=== PATIENT | female | born 1945 | race African-American/Black ===

== ENCOUNTER 2019-06-21 16:28 | Inpatient (IN) | payer BC, MEDICARE, OTHER ==
[~2019-06-21] VITALS: Ht 167.6 cm; Wt 79.8 kg
[2019-06-21] MEDS ORDERED: ONDANSETRON HCL 4MG/2ML INJ IV STA ×2 (17:10→20:55)
[2019-06-21] MEDS ORDERED: MORPHINE SULFATE 4 MG/ML CPJ (NOT FOR IM USE) IV STA ×2 (17:10→20:55)
[2019-06-21] MEDS ORDERED: SODIUM CHLORIDE 0.9% 1,000 ML IV ONE (17:10)
[2019-06-21 18:21] LABS: BASOPHILS % 0.3 % (0.0-2.0); EOSINOPHILS % 0.9 % (0.0-5.0); HEMATOCRIT. 42.3 % (36.0-48.0); HEMOGLOBIN. 14.7 g/dL (12.0-16.0); LYMPHOCYTES % 12.2 % (20.0-50.0); MEAN CORPUSCULAR VOLUME 86.1 fL (81.0-99.0); MEAN PLATELET VOLUME 6.5 fl (7.4-10.4); MONOCYTES % 6.4 % (2.0-8.0); NEUTROPHILS % 80.2 % (40.0-76.0); PLATELET 501 x1000/uL (130-400); RED BLOOD CELL COUNT 4.92 mill/uL (4.2-5.4); RED CELL DISTRIBUTION WIDTH 14.7 % (11.6-14.6)
[2019-06-21 18:30] LABS: CHLORIDE 86 mEq/L (98-107)
[2019-06-21 18:59] LABS: CLARITY URINE CLEAR (CLEAR); COLOR URINE YELLOW (YELLOW); KETONES URINE TRACE (NEGATIVE); LEUKOCYTE ESTERASE URINE NEGATIVE (NEGATIVE); NITRITE URINE NEGATIVE (NEGATIVE); OCCULT BLOOD URINE NEGATIVE (NEGATIVE); PH URINE 6.5 (4.5-8.0); PROTEIN URINE 2+ (NEGATIVE); SPECIFIC GRAVITY URINE 1.009 (1.005-1.030); UROBILINOGEN URINE 0.2 E.U./dL (0.2-1.0)
[2019-06-21] MEDS ORDERED: KCL 20MEQ/100ML PREMIX 100 ML IV ONE (19:15)
[2019-06-21] MEDS ORDERED: MAGNESIUM 1 G PREMIX 100 ML IV ONE (19:15)
[2019-06-21] MEDS ORDERED: IOHEXOL-300 100 ML BOTTLE ONE (23:12)
[2019-06-22] MEDS ORDERED: ACETAMINOPHEN 325MG TABLET PO PRN ×2 (00:45→14:45)
[2019-06-22] MEDS: SODIUM CHL 0.9% + KCL 20MEQ/L 1,000 ML IV SCH ×3 (01:46→15:38)
[2019-06-22] MEDS: HYDROMORPHONE HCL/PF 2MG/ML CPJ IV PRN ×5 (01:46→17:15)
[2019-06-22 04:52] LABS: BASOPHILS % 0.2 % (0.0-2.0); EOSINOPHILS % 0.4 % (0.0-5.0); LYMPHOCYTES % 8.5 % (20.0-50.0); MEAN CORPUSCULAR HEMOGLOBIN 29.4 pg (28.0-32.0); MEAN CORPUSCULAR VOLUME 85.8 fL (81.0-99.0); MEAN PLATELET VOLUME 6.4 fl (7.4-10.4); MONOCYTES % 5.2 % (2.0-8.0); NEUTROPHILS % 85.7 % (40.0-76.0); PLATELET 505 x1000/uL (130-400); RED BLOOD CELL COUNT 4.78 mill/uL (4.2-5.4); RED CELL DISTRIBUTION WIDTH 15.1 % (11.6-14.6)
[2019-06-22 04:56] LABS: CHLORIDE 90 mEq/L (98-107)
[2019-06-22] MEDS: ONDANSETRON HCL 4MG/2ML INJ IV PRN ×3 (06:46→13:24)
[2019-06-22 08:20] VITALS: BP 166/96
[2019-06-22] MEDS ORDERED: AMLO2.5T45 MT (10:47)
[2019-06-22] MEDS ORDERED: HYDR12.54 MT (10:47)
[2019-06-22 10:48] VITALS: BP 166/96
[2019-06-22 12:00] VITALS: BP 119/94
[2019-06-22] MEDS: DILTIAZEM HCL 30MG TABLET PO NR ×2 (13:00→17:16)
[2019-06-22] MEDS ORDERED: DILTIAZEM HCL 5MG/ML 5ML VIAL IV SCH (13:15)
[2019-06-22] MEDS ORDERED: LACTULOSE 20G/30ML UDC PO PRN (14:45)
[2019-06-22] MEDS ORDERED: DIPHENHYDRAMINE 50MG/ML VIAL IV PRN (14:45)
[2019-06-22] MEDS ORDERED: CLONIDINE 0.1MG TABLET PO PRN (14:45)
[2019-06-22] MEDS ORDERED: ACETAMINOPHEN 650MG SUPP PR PRN (14:45)
[2019-06-22 15:12] LABS: BASOPHILS % 0.1 % (0.0-2.0); EOSINOPHILS % 0.4 % (0.0-5.0); HEMOGLOBIN. 15.2 g/dL (12.0-16.0); MEAN CORPUSCULAR HEMOGLOBIN 28.9 pg (28.0-32.0); MEAN CORPUSCULAR VOLUME 85.6 fL (81.0-99.0); MEAN PLATELET VOLUME 6.8 fl (7.4-10.4); MONOCYTES % 4.7 % (2.0-8.0); NEUTROPHILS % 86.8 % (40.0-76.0); PLATELET 479 x1000/uL (130-400); RED BLOOD CELL COUNT 5.26 mill/uL (4.2-5.4); RED CELL DISTRIBUTION WIDTH 15.2 % (11.6-14.6)
[2019-06-22 15:16] LABS: CHLORIDE 86 mEq/L (98-107)
[2019-06-22] MEDS: PIPERACILLIN/TAZOBACTAM 3.375 G in DEXT 5% WATER 100 ML IV SCH ×2 (15:38→20:33)
[2019-06-22 16:00] VITALS: BP 164/98
[2019-06-22 17:33] LABS: INR 1.1; PROTHROMBIN TIME 11.7 sec (9.6-11.0)
[2019-06-22 17:44] LABS: CREATINE KINASE 55 IU/L (26-192)
[2019-06-22] MEDS ORDERED: POTASSIUM CHLORIDE 20MEQ TABLET SR PO NR (17:45)
[2019-06-22] MEDS ORDERED: POTASSIUM CHLORIDE INJ 40 MEQ in DEXT 5% WATER 500 ML IV ONE (17:45)
[2019-06-22 17:46] LABS: CREATINE KINASE MB FRACTION < 1.0 ng/mL (0.5-3.6)
[2019-06-22] MEDS ORDERED: POTASSIUM CHLORIDE INJ 40 MEQ in DEXT 5% WATER 500 ML IV NR (18:00)
[2019-06-22] MEDS: ASPIRIN 81MG TABLET PO SCH (18:14)
[2019-06-22 20:00] VITALS: BP 140/89
[2019-06-22] MEDS ORDERED: MAGNESIUM 2 G PREMIX 50 ML IV SCH (20:00)
[2019-06-22] MEDS: DILTIAZEM HCL 30MG TABLET PO SCH (21:14)
[2019-06-22] MEDS ORDERED: KCL 20MEQ/100ML PREMIX 100 ML IV NR (23:00)
[2019-06-22 23:38] LABS: CHLORIDE 86 mEq/L (98-107)
[2019-06-23] VITALS: BP 145/83
[2019-06-23] MEDS: SODIUM CHL 0.9% + KCL 20MEQ/L 1,000 ML IV SCH ×3 (01:00→21:24)
[2019-06-23] MEDS ORDERED: POTASSIUM CHLORIDE INJ 40 MEQ in DEXT 5% WATER 250 ML IV SCH (02:00)
[2019-06-23] MEDS: HYDROMORPHONE HCL/PF 2MG/ML CPJ IV PRN ×2 (03:20→12:05)
[2019-06-23] MEDS: PIPERACILLIN/TAZOBACTAM 3.375 G in DEXT 5% WATER 100 ML IV SCH ×4 (03:45→21:23)
[2019-06-23 04:00] VITALS: BP 138/94
[2019-06-23] MEDS: DILTIAZEM HCL 30MG TABLET PO SCH (06:09)
[2019-06-23 07:43] LABS: HEMATOCRIT. 40.7 % (36.0-48.0); HEMOGLOBIN. 14.2 g/dL (12.0-16.0); MEAN CORPUSCULAR HEMOGLOBIN 29.7 pg (28.0-32.0); MEAN CORPUSCULAR VOLUME 85.1 fL (81.0-99.0); MEAN PLATELET VOLUME 6.4 fl (7.4-10.4); PLATELET 470 x1000/uL (130-400); RED BLOOD CELL COUNT 4.78 mill/uL (4.2-5.4)
[2019-06-23 08:00] VITALS: BP 130/80
[2019-06-23 08:20] LABS: CHLORIDE 90 mEq/L (98-107)
[2019-06-23] MEDS: ASPIRIN 81MG TABLET PO SCH (08:50)
[2019-06-23 10:38] LABS: PLATELET ESTIMATE SLIGHTLY INCREASED
[2019-06-23] MEDS ORDERED: PANTOPRAZOLE SODIUM 40 MG/VIAL IV SCH (10:45)
[2019-06-23] MEDS ORDERED: POTASSIUM CHLORIDE 20MEQ TABLET SR PO SCH ×2 (10:45→15:00)
[2019-06-23 12:04] VITALS: BP 158/90
[2019-06-23 16:03] VITALS: BP 157/95
[2019-06-23 17:16] LABS: CHLORIDE 89 mEq/L (98-107)
[2019-06-23 20:00] VITALS: BP 165/99
[2019-06-23] MEDS: METOPROLOL TARTRATE 25MG TABLET PO SCH (21:23)
[2019-06-23] MEDS: AMLODIPINE 2.5MG TABLET PO SCH (21:23)
[2019-06-24] VITALS: BP 150/89
[2019-06-24] MEDS: PIPERACILLIN/TAZOBACTAM 3.375 G in DEXT 5% WATER 100 ML IV SCH ×4 (02:38→21:20)
[2019-06-24 04:00] VITALS: BP 139/79
[2019-06-24] MEDS: SODIUM CHL 0.9% + KCL 20MEQ/L 1,000 ML IV SCH ×3 (05:35→21:20)
[2019-06-24 07:04] LABS: BASOPHILS % 0.2 % (0.0-2.0); EOSINOPHILS % 0.8 % (0.0-5.0); HEMATOCRIT. 40.6 % (36.0-48.0); HEMOGLOBIN. 13.7 g/dL (12.0-16.0); LYMPHOCYTES % 7.9 % (20.0-50.0); MEAN CORPUSCULAR HEMOGLOBIN 28.8 pg (28.0-32.0); MEAN CORPUSCULAR VOLUME 85.4 fL (81.0-99.0); MEAN PLATELET VOLUME 6.8 fl (7.4-10.4); MONOCYTES % 7.7 % (2.0-8.0); NEUTROPHILS % 83.4 % (40.0-76.0); PLATELET 435 x1000/uL (130-400); RED BLOOD CELL COUNT 4.75 mill/uL (4.2-5.4); RED CELL DISTRIBUTION WIDTH 15.1 % (11.6-14.6)
[2019-06-24 07:44] LABS: CHLORIDE 92 mEq/L (98-107)
[2019-06-24 08:00] VITALS: BP 135/89
[2019-06-24] MEDS: ONDANSETRON HCL 4MG/2ML INJ IV PRN (09:00)
[2019-06-24] MEDS: AMLODIPINE 2.5MG TABLET PO SCH ×2 (09:01→21:19)
[2019-06-24] MEDS: ASPIRIN 81MG TABLET PO SCH (09:01)
[2019-06-24] MEDS: METOPROLOL TARTRATE 25MG TABLET PO SCH (09:01)
[2019-06-24 12:00] VITALS: BP 99/64
[2019-06-24] MEDS: PANTOPRAZOLE SODIUM 40 MG/VIAL IV SCH (14:01)
[2019-06-24 15:04] LABS: BG BASE EXCESS 3.2 mmol/L (-2.0-2.0); BG CARBOXYHEMOGLOBIN 0.8 % (0.5-1.5); BG FRACTION INSPIRED OXYGEN 21; BG HCO3 ACT 25.4 mmol/L (22.0-26.0); BG METHEMOGLOBIN 0.9 % (0.0-1.5); BG OXYGEN SATURATION 95.9 % (92.0-98.5); BG OXYHEMOGLOBIN 94.3 % (94.0-97.0); BG PCO2 31.4 mmHg (35.0-45.0); BG PH 7.525 (7.350-7.450); BG PO2 73.4 mmHg (75.0-100.0); BG SAMPLE SITE RIGHT BRACHIAL; BG TOTAL HEMOGLOBIN 13.2 g/dL (12.0-18.0); BG VENT MODE ROOM AIR
[2019-06-24 16:00] VITALS: BP 131/82
[2019-06-24] MEDS: METOCLOPRAMIDE HCL 10MG/2ML VIAL IV SCH (17:55)
[2019-06-24 20:00] VITALS: BP 130/70
[2019-06-24] MEDS: METOPROLOL TARTRATE 50MG TABLET PO SCH (21:19)
[2019-06-25] VITALS: BP 120/62
[2019-06-25] MEDS: METOCLOPRAMIDE HCL 10MG/2ML VIAL IV SCH ×4 (01:00→18:21)
[2019-06-25 04:00] VITALS: BP 132/61
[2019-06-25] MEDS: PIPERACILLIN/TAZOBACTAM 3.375 G in DEXT 5% WATER 100 ML IV SCH ×4 (04:25→21:07)
[2019-06-25] MEDS: SODIUM CHL 0.9% + KCL 20MEQ/L 1,000 ML IV SCH ×2 (05:35→14:22)
[2019-06-25 06:28] LABS: BASOPHILS % 0.3 % (0.0-2.0); EOSINOPHILS % 1.2 % (0.0-5.0); HEMATOCRIT. 34.6 % (36.0-48.0); HEMOGLOBIN. 11.8 g/dL (12.0-16.0); LYMPHOCYTES % 11.9 % (20.0-50.0); MEAN CORPUSCULAR HEMOGLOBIN 29.2 pg (28.0-32.0); MEAN CORPUSCULAR VOLUME 85.3 fL (81.0-99.0); MEAN PLATELET VOLUME 6.7 fl (7.4-10.4); MONOCYTES % 9.2 % (2.0-8.0); NEUTROPHILS % 77.4 % (40.0-76.0); PLATELET 363 x1000/uL (130-400); RED BLOOD CELL COUNT 4.05 mill/uL (4.2-5.4); RED CELL DISTRIBUTION WIDTH 15.2 % (11.6-14.6)
[2019-06-25 07:31] LABS: CHLORIDE 96 mEq/L (98-107)
[2019-06-25 07:43] LABS: PHOSPHORUS 1.8 mg/dL (2.5-4.9)
[2019-06-25 08:00] VITALS: BP 121/74
[2019-06-25] MEDS: PANTOPRAZOLE SODIUM 40 MG/VIAL IV SCH (09:15)
[2019-06-25] MEDS: METOPROLOL TARTRATE 50MG TABLET PO SCH ×2 (09:16→21:07)
[2019-06-25] MEDS: AMLODIPINE 2.5MG TABLET PO SCH ×2 (09:16→21:06)
[2019-06-25 12:00] VITALS: BP 125/67
[2019-06-25] MEDS ORDERED: POTASSIUM PHOS,M-BASIC-D-BASIC 10 MMOL in DEXT 5% WATER 246.6667 ML IV ONE (13:00)
[2019-06-25] MEDS ORDERED: MAGNESIUM 1 G PREMIX 100 ML IV ONE (14:30)
[2019-06-25 16:00] VITALS: BP 125/68
[2019-06-25] MEDS ORDERED: MAGNESIUM 2 G PREMIX 50 ML IV ONE (16:00)
[2019-06-25] MEDS ORDERED: SODIUM PHOS,M-BASIC-D-BASIC 10 MM in DEXTROSE 5% WATER 250 ML IV ONE (17:00)
[2019-06-25] MEDS ORDERED: HYDROCODONE/ACETAMINOPHEN 5/325MG TABLET PO PRN (17:00)
[2019-06-25 20:00] VITALS: BP 123/72
[2019-06-26] VITALS: BP 130/60
[2019-06-26] MEDS: SODIUM CHL 0.9% + KCL 20MEQ/L 1,000 ML IV SCH ×2 (00:17→14:53)
[2019-06-26] MEDS: METOCLOPRAMIDE HCL 10MG/2ML VIAL IV SCH ×4 (00:17→17:38)
[2019-06-26 04:00] VITALS: BP_SYST 132; BP_SYST 140; BP_DIAS 65; BP_DIAS 80
[2019-06-26] MEDS: PIPERACILLIN/TAZOBACTAM 3.375 G in DEXT 5% WATER 100 ML IV SCH ×3 (04:30→14:53)
[2019-06-26 06:09] LABS: BASOPHILS % 0.4 % (0.0-2.0); EOSINOPHILS % 3.2 % (0.0-5.0); HEMATOCRIT. 33.1 % (36.0-48.0); HEMOGLOBIN. 11.3 g/dL (12.0-16.0); MEAN CORPUSCULAR HEMOGLOBIN 29.4 pg (28.0-32.0); MEAN CORPUSCULAR VOLUME 85.6 fL (81.0-99.0); MEAN PLATELET VOLUME 6.6 fl (7.4-10.4); MONOCYTES % 8.1 % (2.0-8.0); NEUTROPHILS % 72.3 % (40.0-76.0); PLATELET 357 x1000/uL (130-400); RED BLOOD CELL COUNT 3.86 mill/uL (4.2-5.4)
[2019-06-26 08:00] VITALS: BP 143/72
[2019-06-26 08:57] LABS: CHLORIDE 99 mEq/L (98-107)
[2019-06-26] MEDS: PANTOPRAZOLE SODIUM 40 MG/VIAL IV SCH (09:08)
[2019-06-26] MEDS: METOPROLOL TARTRATE 50MG TABLET PO SCH (09:09)
[2019-06-26] MEDS: AMLODIPINE 2.5MG TABLET PO SCH (09:09)
[2019-06-26 12:00] VITALS: BP 135/75
[2019-06-26] MEDS ORDERED: LORAZEPAM 0.5MG TABLET PO NR (12:30)
[2019-06-26 16:00] VITALS: BP 148/75
[2019-06-26 20:01] VITALS: BP 148/75
== END 2019-06-26 21:00 | disposition home health service (06) | DRG 435 ==
LOC: ER 16:28 → 5WST 21:55 → EDBEDREQ 22:00 → EDBEDREQTM 22:00 → ENRESERV 06-22 07:44
PROVIDERS: ADMIT Ophthalmology; ATTEND Ophthalmology
DX: C78.7 Secondary malignant neoplasm of liver and intrahepatic bile duct (principal); K66.1 Hemoperitoneum; C25.9 Malignant neoplasm of pancreas, unspecified; E87.1 Hypo-osmolality and hyponatremia; C78.00 Secondary malignant neoplasm of unspecified lung; G93.40 Encephalopathy, unspecified; E87.6 Hypokalemia; R73.9 Hyperglycemia, unspecified; R00.0 Tachycardia, unspecified; I10 Essential (primary) hypertension; D47.3 Essential (hemorrhagic) thrombocythemia; R16.0 Hepatomegaly, not elsewhere classified; D72.829 Elevated white blood cell count, unspecified; E83.52 Hypercalcemia; E83.39 Other disorders of phosphorus metabolism; K57.90 Diverticulosis of intestine, part unspecified, without perforation or abscess without bleeding; R62.7 Adult failure to thrive; Z68.28 Body mass index [BMI] 28.0-28.9, adult; Z88.6 Allergy status to analgesic agent; Z87.11 Personal history of peptic ulcer disease
CPT/HCPCS: 36415; 36600; 71045; 74177; 76700; 80048; 80053; 81003; 82105; 82140; 82375; 82378; 82533; 82550; 82553; 82805; 83735; 84100; 84132; 84443; 84484; 85025; 86301; 93005; 93306; 93970; 97162; 99285; C9113; J1170; J2270; J2405; J2543; J2765; J3475; J3480; J3490; J7030; J7060; Q9967